=== PATIENT | male | born 1970 | race African-American/Black ===

== ENCOUNTER 2017-08-23 09:38 | Emergency (ER) | payer BC, OTHER ==
[~2017-08-23] VITALS: Ht 195.6 cm; Wt 107.5 kg
--- NOTE | ~2017-08-23 | EKG ---
[address] [place] [employer] [address] ELECTROCARDIOGRAM REPORT Name: JODIBRUCE Room #: JIMMIE Oliva#: [id number] Admission: 08/23/17 Attend Phys: Discharge: 08/23/17 Date of : 72 Report #: [id number] THIS REPORT FOR: //name// [facility] ED Test Date: 2017-08-23 Test Time: 09:56:16 Pat Name: BRUCE ZAPATA Department: Room: Gender: M Quarryman: PENNY : 1970 Requested By: Geronimo Griffith Order Number: [id number] MD: Will Azul Measurements Intervals [place] Rate: 62 P: 57 CA: 154 QRS: 41 QRSD: 112 T: 7 QT: 415 QTc: 422 Interpretive Statements Sinus rhythm Borderline intraventricular conduction delay Minimal ST depression, inferior leads ST elev, probable normal early repol pattern Compared to ECG 10/08/2011 18:41:07 ST (T wave) deviation now present Sinus arrhythmia no longer present Electronically Signed On 08-23-2017 20:27:37 CDT by Will Azul [email or web address] <ELECTRONICALLY SIGNED> By: Will Azul MD 08/23/172026 Will Azul MD /ROMAN
[~2017-08-23 09:38] MED LIST: ASPIRIN EC81 M1; HYDROCODON-ACE1 EAC7; LISINOPRIL5 MG PO; NOHOMEMEDICATIONS; NORCO 5-325 TA1 EACH PO
[2017-08-23 10:08] LABS: HEMATOCRIT 41.8 % (42.0-52.0); HEMOGLOBIN 13.9 gm/dL (14.0-18.0); MCHC 33.2 g/dL (28.0-37.0); MCV 84.4 fL (80.0-100.0); PLATELET COUNT 222 thou/uL (150-400); RBC 4.95 mil/uL (4.50-6.00); RDW 13.8 % (10.5-14.5); WBC 5.9 thou/uL (4.0-11.0)
[2017-08-23 10:14] LABS: MANUAL DIFF YES
[2017-08-23 10:19] LABS: ANION GAP 7 mmol/L (7-16); BUN 10 mg/dL (7-18); CALCIUM 9.2 mg/dL (8.5-10.1); CHLORIDE 103 mmol/L (98-107); CO2 27 mmol/L (21-32); CREATININE 1.1 mg/dL (0.7-1.3); GLUCOSE 103 mg/dL (74-106); POTASSIUM 3.3 mmol/L (3.5-5.1); SODIUM 137 mmol/L (136-145)
[2017-08-23 10:27] LABS: TROPONIN-I < 0.04 ng/mL (<0.04-0.07)
[2017-08-23 11:00] LABS: ABSOLUTE NEUTROPHILS 3.2 thou/uL (1.4-8.2); PLATELET ESTIMATE NORMAL; TOTAL CELL COUNT 100
[2017-08-23] MEDS ORDERED: LISINOPRIL5 MG PO (11:17)
[2017-08-23 12:11] VITALS: BP 153/114
== END 2017-08-23 12:13 | disposition home or self-care (01) ==
LOC: ER 09:38
PROVIDERS: Nurse Practitioner
DX: I10 Essential (primary) hypertension (principal); F17.210 Nicotine dependence, cigarettes, uncomplicated

== ENCOUNTER 2019-07-24 08:40 | Emergency (ER) | payer BC, OTHER ==
[~2019-07-24] VITALS: Ht 195.6 cm; Wt 117.9 kg
[2019-07-24] MEDS ORDERED: NORVASC10 MG PO (08:44)
[2019-07-24] MEDS ORDERED: NAPROSYN500 MG PO (09:43)
[2019-07-24] MEDS ORDERED: MEDROLDOSEPACK PO (09:43)
[2019-07-24 10:04] VITALS: BP 171/120
== END 2019-07-24 10:05 | disposition home or self-care (01) ==
LOC: ER 08:40
DX: M54.12 Radiculopathy, cervical region (principal); I10 Essential (primary) hypertension; F17.210 Nicotine dependence, cigarettes, uncomplicated

== ENCOUNTER 2021-04-06 11:25 | Emergency (ER) | payer OTHER ==
[~2021-04-06] VITALS: Ht 195.6 cm; Wt 108.9 kg
[~2021-04-06 11:25] MED LIST changes: +MEDROLDOSEPACK PO; +NAPROSYN500 MG PO; +NORVASC10 MG PO
[2021-04-06 11:28] VITALS: BP 146/102
[2021-04-06] MEDS ORDERED: AUGMENTIN 875-1 EACH PO (11:51)
== END 2021-04-06 12:09 | disposition home or self-care (01) ==
LOC: ER 11:25
DX: S61.451A Open bite of right hand, initial encounter (principal); I10 Essential (primary) hypertension; F17.210 Nicotine dependence, cigarettes, uncomplicated; Z98.890 Other specified postprocedural states; Z79.899 Other long term (current) drug therapy; W50.3XXA Accidental bite by another person, initial encounter; Y93.89 Activity, other specified; Y92.89 Other specified places as the place of occurrence of the external cause; Y99.8 Other external cause status